=== PATIENT | female | born 1985 | race Two or more races ===

== ENCOUNTER 2025-02-27 12:29 | Emergency (ER) | payer MEDICAID, SELFPAY ==
[2025-02-27 12:30] VITALS: BMI 21.4
[2025-02-27 12:39] VITALS: BP 115/76; PULSE 67; RESP 17; TEMP 36.8; O2SAT 98
--- NOTE | 2025-02-27 12:49 | XR_ITS ---
Examination: PA lateral chest 2 views TECHNIQUE: Upright PA lateral chest 2 views Date and time: February 27, 2025 1310 hours INDICATIONS: Shortness of breath chest pain today. FINDINGS: Normal heart size. Lungs are clear. The osseous structures are intact IMPRESSION: No active disease
--- NOTE | 2025-02-27 12:49 | EKG_ITS ---
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
--- NOTE | 2025-02-27 13:00 | PD.EDRME ---
Rapid Medical Screening Exam RME Arrival date/time: 02/27/25 12:29 40-year-old female presents to the emergency department today for complaints of chest pain Chief Complaint: Shortness of Breath/Dyspnea Vital signs: Vital Signs Temperature 98.3 F 02/27/25 12:39 Pulse Rate 67 02/27/25 12:39 Respiratory Rate 17 02/27/25 12:39 Blood Pressure 115/76 02/27/25 12:39 Pulse Oximetry (%) 98 02/27/25 12:39 Oxygen Delivery Method Room Air 02/27/25 12:39
[2025-02-27 13:14] LABS: Basophils # (Auto) 0.1 Thou/mm3 (0.0-0.2); Basophils % (Auto) 1 % (0-2.5); Eosinophils # (Auto) 0.2 Thou/mm3 (0.0-0.5); Eosinophils % (Auto) 2 % (0-10); Hematocrit 42.4 % (36.0-46.0); Hemoglobin 13.7 g/dL (12.0-16.0); Immature Granulocytes % (Auto) 0 % (0-0); Immature Granulocytes Auto 0.01 Thou/mm3 (0.00-0.00); Lymphocytes # (Auto) 2.5 Thou/mm3 (1.0-4.8); Lymphocytes % (Auto) 29 % (10-50); Mean Corpuscular HGB Conc 32.3 g/dl (31.0-37.0); Mean Corpuscular Hemoglobin 27.4 pg (25.0-35.0); Mean Corpuscular Volume 85 fL (80-100); Monocytes # (Auto) 0.6 Thou/mm3 (0.0-0.8); Monocytes % (Auto) 7 % (0-12); Neutrophils # (Auto) 5.4 Thou/mm3 (1.8-7.7); Neutrophils % (Auto) 62 % (37-80); Nucleated Red Blood Cell % 0 /100 WBC (0); Platelet Count 159 Thou/mm3 (140-440); RDW Standard Deviation 39.5 fL (36.4-46.3); White Blood Count 8.8 Thou/mm3 (3.6-11.0)
[2025-02-27 13:31] LABS: Alanine Aminotransferase 12 U/L (10-49); Albumin, Serum 4.5 gm/dL (3.5-5.0); Albumin/Globulin Ratio 1.7 (1.2-2.2); Alkaline Phosphatase 58 U/L (46-116); Anion Gap 8 (7-16); Aspartate Amino Transferase 18 U/L (0-34); BUN/Creatinine Ratio 16 Ratio (12-20); Bilirubin,Total 0.6 mg/dL (0.3-1.2); Blood Urea Nitrogen 16 mg/dL (9-23); Calcium 9.5 mg/dL (8.3-10.6); Calcium (Corrected) 9.5 mg/dL (8.5-10.1); Chloride 104 mMol/L (98-107); Estimated Creatinine Clearance 63.3 mL/min (>60); Globulin 2.6 gm/dL (2.3-3.5); Glucose 88 mg/dL (74-106); Osmolality,Calculated 275 (275-295); Sodium 138 mMol/L (136-145); Total Protein 7.1 gm/dL (5.7-8.2); Troponin I < 0.002 ng/mL (0.0-0.045); eGFR > 60 See Note
[2025-02-27 13:50] LABS: Amphetamine/Methamp Scrn,U Negative (Negative); Barbiturate Screen,Urine Negative (Negative); Benzodiazepines Screen,Urine Negative (Negative); Benzoylecgonine Screen, Ur Negative (Negative); Fentanyl Screen,Urine Negative (Negative); Opiate Screen,Urine Negative (Negative); THC Screen,Urine Negative (Negative)
[2025-02-27 15:16] VITALS: BP 138/76; PULSE 60; RESP 19; TEMP 36.8; O2SAT 99
--- NOTE | 2025-02-27 15:32 | PD.EDSOB ---
ED SOB =RME/HPI General Chief Complaint: Shortness of Breath/Dyspnea Stated Complaint: HAVING TROUBLE BREATHING X 3 WKS, GOTTEN WORSE Time Seen by Provider: 02/27/25 13:50 Arrival date/time: 02/27/25 12:29 Limitations: no limitations RME / HPI RME / HPI Narrative: 40-year-old female with a history of anxiety and stress is here today with a 3-week history of intermittent chest pain and shortness of breath. She endorses significant stressors in her life. She states she has teenagers at home that are having legal issues. She has been seen by her primary care provider for this and started on clonazepam. She denies any near-syncope episodes. Has had no lower leg edema. No recent traveling. She has no recent surgeries. Past surgeries do include remote history of hysterectomy, cholecystectomy, and she has donated a single kidney. She has no other acute complaints or concerns. Related Data Home Medications ?Medication ?Instructions ?Recorded ?Confirmed bupropion HCl 75 mg tablet 150 mg PO BID 11/30/22 11/30/22 Previous Rx's ?Medication ?Instructions ?Recorded acetaminophen 300 mg-codeine 30 mg 1 tab PO Q8H PRN pain #14 tabs 11/30/22 tablet amoxicillin 500 mg tablet 500 mg PO Q8H #30 tabs 11/30/22 hydrocodone 5 mg-acetaminophen 325 1 tab PO Q8H PRN pain #14 tabs 11/30/22 mg tablet lidocaine HCl 2 % mucosal solution 2.5 ml PO QID #100 mL 11/30/22 (Lidocaine Viscous) Allergies Allergy/AdvReac Type Severity Reaction Status Date / Time No Known Allergies Allergy Verified 02/27/25 12:32 Review of Systems Review of Systems Systems Reviewed: All systems reviewed, normal except as documented ED Exam General Limitations: Present no limitations General appearance: Present alert and in no apparent distress Head Head exam: Present atraumatic Eye Eye exam: Present normal appearance, PERRL and EOMI ENT ENT exam: Present normal exam, normal oropharynx and mucous membranes moist Neck Neck exam: Present normal inspection, full ROM and trachea midline Chest Chest inspection: Present normal inspection and symmetric chest wall rise Respiratory Respiratory exam: Present normal lung sounds bilaterally Cardiovascular Cardiovascular exam: Present regular rate, normal rhythm and normal heart sounds Abdominal Exam Abdominal exam: Present soft and normal bowel sounds Extremities Exam Extremities exam: Present normal inspection and full ROM Back Exam Back exam: Present normal inspection and full ROM Neurological Exam Neurological exam: Present alert, oriented X3 and CN II-XII intact Psychiatric Psychiatric exam: Present normal affect and normal mood Skin Skin exam: Present warm, dry, intact and normal color Course Quality Measures none Orders Category Date Time Status EKG (ED ONLY) *Do not use* NOW Care 02/27/25 12:49 Completed EKG (ED Only) Stat Exams 02/27/25 12:49 Draft XR chest 2V Stat Exams 02/27/25 12:49 Completed CBC Stat Lab 02/27/25 13:00 Completed Comprehensive Metabolic Panel Stat Lab 02/27/25 13:00 Completed Drug Screen,Urine Stat Lab 02/27/25 13:05 Completed Troponin I Stat Lab 02/27/25 13:00 Completed Vital Signs Vital signs: Vital Signs Temperature 98.3 F 02/27/25 12:39 Pulse Rate 67 02/27/25 12:39 Respiratory Rate 17 02/27/25 12:39 Blood Pressure 115/76 02/27/25 12:39 Pulse Oximetry (%) 98 02/27/25 12:39 Oxygen Delivery Method Room Air 02/27/25 12:39 Shortness of Breath / Dyspnea MDM Narrative MDM Narrative:: 40-year-old female with a history of anxiety and stress is here today with a 3-week history of intermittent chest pain and shortness of breath. She endorses significant stressors in her life. She states she has teenagers at home that are having legal issues. She has been seen by her primary care provider for this and started on clonazepam. She denies any near-syncope episodes. Has had no lower leg edema. No recent traveling. She has no recent surgeries. Past surgeries do include remote history of hysterectomy, cholecystectomy, and she has donated a single kidney. She has no other acute complaints or concerns. On exam patient is nontoxic-appearing in no visible signs distress. Vital signs are stable. Her work appears essentially unremarkable. We discussed the need to continue cognitive behavioral therapy. She will see her primary care provider. She will continue her current prescription of clonazepam. We discussed other pharmacotherapy options that she may consider with her primary doctor as well. She is asked to return here as needed for any worsening or emergent changes. Patient data External records reviewed:: None Clinical information provided by:: patient Social determinants that could affect healthcare access:: mental health Patient has the following chronic illnesses:: Anxiety, depression How is presenting disease/condition affected by chronic disease/condition?: exacerbated by Evaluation data The following diagnostics were reviewed and interpreted by me:: lab results (No leukocytosis or metabolic derangement. Troponin is negative.), radiology exam(s) (Clear expanded lungs without any mass or infiltrate.) and EKG tracing(s) (Sinus bradycardia [address] changes or dynamic T waves.) Lab and/or radiology exams considered but not ordered:: n/a Interpretation Summary: Workup was unremarkable Medications / Prescriptions Medications or Prescriptions considered but not ordered:: n/a Medication administrations:: n/a Consultations Consultation(s) initiated? (list below): No Diagnosis Shortness of Breath Differential Diagnosis: acute exacerbation of chronic obstructive airways disease, congestive heart failure and community acquired pneumonia Most likely diagnosis given after review of the tests above:: Anxiety Admission Indicated Admission indicated?: not indicated Admission Request Was there a request for admission?: No Disposition Plan Disposition Plan: Discharge Discharge Attestation Discharge Attestation: The patient and all family members were given an opportunity to ask questions and understood the discharge instructions. Discharge instructions specifically effects, indications for sooner follow up or return to the emergency department, and the expected course of current diagnosis. Patient condition: Stable Discharge Plan Plan Patient Disposition: HOME (Self Care) Patient condition on transfer: Stable Prescriptions/Referrals Prescriptions/Med Rec: No Action bupropion HCl 75 mg tablet 150 mg PO BID Patient Comments: TAKE 2 TABLETS (150 MG) BY MOUTH 2 TIMES PER DAY hydrocodone-acetaminophen 5-325 mg tablet 1 tab PO Q8H MDD 3 PRN (Reason: pain) Qty: 14 0RF lidocaine HCl [Lidocaine Viscous] 2 % solution 2.5 ml PO QID Qty: 100 0RF amoxicillin 500 mg tablet 500 mg PO Q8H Qty: 30 0RF acetaminophen-codeine 300-30 mg tablet 1 tab PO Q8H PRN (Reason: pain) Qty: 14 0RF Referrals: EVAN DE LA CRUZ [Primary Care Provider] - In 1 week Problem List Clinical Impression: Anxiety Patient/Caregiver Discharge Instructions Education Materials: Anxiety Disorders Tx Therapy Additional Instructions: Continue current therapies and follow-up with your primary doctor. Please return as needed for any worsening or emergent changes. Print Language: [place] Stand Alone Forms: Patti Award Info., Patient Portal Info Letter
== END 2025-02-27 16:34 | disposition home or self-care (01) ==
PROVIDERS: Nurse Practitioner Primary Care; Emergency Provider Family Medicine; PCP Nurse Practitioner Family
DX: F41.9 Anxiety disorder, unspecified (principal); R06.02 Shortness of breath; R07.9 Chest pain, unspecified; I45.10 Unspecified right bundle-branch block
CPT/HCPCS: 36415; 71046; 80053; 80307; 84484; 85025; 93005; 99283